=== PATIENT | female | born 1995 | race Caucasian/White ===

== ENCOUNTER 2017-08-25 13:51 | Inpatient (IN) | payer BC ==
[~2017-08-25] VITALS: Ht 165.1 cm; Wt 56.7 kg
[2017-08-25 15:23] LABS: BASOPHILS 0.4 % (0-2); EOSINOPHILS 1.1 % (0-7); HEMATOCRIT 38.2 % (36.0-48.0); IMMATURE GRANULOCYTES 0.2 % (0-5); LYMPHOCYTES 28.3 % (15-50); MCH 28.1 pg (26.0-34.0); MCV 82.5 fL (80.0-100.0); MEAN PLATELET VOLUME 10.8 fL (7.4-10.4); MONOCYTES 12.8 % (2-11); NEUTROPHILS 57.2 % (40-80); PLATELET COUNT 213 10x3/uL (130-400); RBC 4.63 10x6/uL (4.00-5.40); RDW 12.3 % (11.5-14.5); WBC 5.2 10x3/uL (4.8-10.8)
[2017-08-25 15:37] LABS: APPEARANCE HAZY (CLEAR); BILIRUBIN NEGATIVE (NEGATIVE); COLOR YELLOW (YELLOW); GLUCOSE 1000 mg/dL (NEGATIVE); KETONE NEGATIVE (NEGATIVE); NITRITE POSITIVE (NEGATIVE); PROTEIN NEGATIVE (NEGATIVE); SPECIFIC GRAVITY 1.015 (1.005-1.020); UROBILINOGEN NORMAL (NORMAL)
[2017-08-25 15:39] LABS: BACTERIA MANY /hpf (NONE SEEN); EPITHELIAL CELLS 0-5 /hpf (0-5); MUCUS <1+ /lpf (NONE SEEN); RED CELLS - URINE 0-5 /hpf (0-5); WHITE CELLS - URINE 25-50 /hpf (0-5)
[2017-08-25 15:41] LABS: ALBUMIN 3.4 g/dL (3.4-5.0); ALKALINE PHOSPHATASE 74 U/L (46-116); ALT (SGPT) 17 U/L (10-68); CALCIUM 9.4 mg/dL (8.5-10.1); CARBON DIOXIDE 29.2 mmol/L (21.0-32.0); CHLORIDE - SERUM 102 mmol/L (98-107); CREATININE - SERUM 0.7 mg/dL (0.6-1.3); GLUCOSE 121 mg/dL (74-106); POTASSIUM - SERUM 4.1 mmol/L (3.5-5.1); PROTEIN - SERUM 7.1 g/dL (6.4-8.2); SODIUM 139 mmol/L (136-145); eGFR NON AFRICAN AMERICAN > 90 mL/min (90-120)
[2017-08-25 15:47] LABS: CALC OSMOLALITY 276 mosm/kg (275-300); UREA NITROGEN 8 mg/dL (7-18)
[2017-08-25 16:44] LABS: HCG URINE NEGATIVE (NEGATIVE)
--- NOTE | 2017-08-25 21:15 | NUR ---
RECEIVED PT FROM ED VIA WC PER HOSPITAL STAFF, PT TO ROOM 1218, PT ORIENTED TO ROOM PER HOSPITAL STAFF, INFORMED PT THAT I WILL BE BACK SHORTLY TO DO ASSESSMENT, PT VERBALIZES UNDERSTANDING, DENIES NEEDS AT THIS TIME
--- NOTE | 2017-08-25 21:35 | NUR ---
PT TRANSFERRED FROM ROOM 1218 TO ROOM 1221 VIA AMB, GAIT STEADY, PT CHANGED INTO HOSPITAL GOWN, PT TO BED
[2017-08-25 21:40] VITALS: BP 121/74; BMI 20.8
--- NOTE | 2017-08-25 21:40 | NUR ---
ADMITTING ASSESSMENT AND HISTORY STARTED
[2017-08-25] MEDS ORDERED: VYVANSE40 MG PO (22:09)
[2017-08-25] MEDS ORDERED: ZOFRAN8 MG PO (22:12)
[2017-08-25] MEDS ORDERED: ZOMIG5 MG/SPRAY NS (22:13)
--- NOTE | 2017-08-25 22:16 | NUR ---
ADMITTING HISTORY AND ASSESSMENT COMPLETED, SALINE LOCK IN RIGHT WRIST CONVERTED TO IV, NS STARTED VIA PUMP INFUSING AT 150 ML/HR, FSBS CHECKED, WILL ADM INSULIN PER MD ORDERS
--- NOTE | 2017-08-25 22:30 | NUR ---
INSULIN VERIFIED PER THIS RN AND NGHIA PASTOR, RN, PT ADM INSULIN PER SELF, SNACK PROVIDED, PT ORIENTED TO ROOM, BED IN LOW POSITION, SIDE RAILS X 2, CALL LIGHT IN REACH
--- NOTE | 2017-08-25 22:50 | NUR ---
PT INST TO USE [place] HAT WHEN VOIDING TO STRAIN URINE FOR KIDNEY STONE AND DO A CLEAN CATCH FOR A URINE CULTURE, PT VERBALIZES UNDERSTANDING
--- NOTE | 2017-08-25 23:05 | NUR ---
PT OBTAINED URINE CULTURE VIA CLEAN CATH, URINE TO LAB
[2017-08-26 00:23] VITALS: BP 99/63
--- NOTE | 2017-08-26 00:23 | NUR ---
PT AWAKE, C/O AMOR AND ABD PAIN, ADM MORPHINE SIVP PER MD ORDERS, SEE EMAR, VS OBTAINED, PT DENIES FURTHER NEEDS AT THIS TIME
--- NOTE | 2017-08-26 02:23 | NUR ---
PT RESTING WITH EYES CLOSED, RESP QUIET, NO DISTRESS NOTED, LEFT UNDISTURBED AT THIS TIME
--- NOTE | 2017-08-26 03:42 | NUR ---
PT RESTING WITH EYES CLOSED, RESP QUIET, NO DISTRESS NOTED, LEFT UNDISTURBED AT THIS TIME
[2017-08-26 04:38] VITALS: BP 111/70
--- NOTE | 2017-08-26 04:40 | NUR ---
pt awake. v/s done. rates pain 4/10, but refuses pain meds at this time.
--- NOTE | 2017-08-26 04:50 | NUR ---
NEW BAG OF NS HUNG VIA PUMP INFUSING AT 150 ML/HR, PT C/O SLIGHT AMOR, OFFERED PT MORPHINE OR TORADOL, PT REFUSES, STATES "I'M OK RIGHT NOW", PT INST TO USE CALL LIGHT FOR ANY NEEDS, PT VERBALIZES UNDERSTANDING
--- NOTE | 2017-08-26 07:21 | NUR ---
SHIFT REPORT TO CARRIE LU RN
[2017-08-26 07:30] VITALS: BP 114/73
--- NOTE | 2017-08-26 07:50 | NUR ---
PT C/O NAUSEA. GIVEN ZOFRAN IV AND FLUSHED WITH NS.
--- NOTE | 2017-08-26 09:47 | NUR ---
PT IS LYING IN BED, RESTING. SHE OFFERS NO COMPLAINTS. HER NAUSEA IS BETTER AND SHE WAS ABLE TO TOLERATE SOME BREAKFAST. BED IS LOW. SIDE RAILS UP X 2 AND CALL LIGHT IN REACH.
[2017-08-26 10:13] VITALS: Ht 165.1 cm; Wt 56.7 kg
--- NOTE | 2017-08-26 14:00 | NUR ---
PT REQUESTED MED FOR NAUSEA AND FOR HER HEADACHE. SHE WAS GIVEN ZOFRAN AND MORPHINE.
--- NOTE | 2017-08-26 18:50 | NUR ---
RECEIVED SHIFT REPORT FROM CARRIE LU RN
[2017-08-26 19:25] VITALS: BP 113/69
--- NOTE | 2017-08-26 19:25 | NUR ---
ASSESSMENT PER FLOW SHEET, VS OBTAINED, IV IN RIGHT WRIST INTACT WITH NO REDNESS OR EDEMA INFUSING VIA PUMP NS AT 150 ML/HR, PT REPORTS FLATUS, NO BM AND VOIDING BY SELF WITH NO DIFFICUTLY, PT REPORTS 500 MLS WITH LAST VOID, PT RATES AMOR 3-01/19, INFORMED PT THAT I WILL SEE WHAT IS ORDERED FOR PAIN AT THIS TIME, PT VERBALIZES UNDERSTANDING, DENIES FURTHER NEEDS AT THIS TIME, BED IN LOW POSITION, SIDE RAILS X 2, CALL LIGHT IN REACH
--- NOTE | 2017-08-26 20:41 | NUR ---
FSBS 135, ADM 2100 MED AND EXCEDRIN FOR AMOR PER MD ORDERS, SEE EMAR, PT DENIES NEEDS AT THIS TIME
--- NOTE | 2017-08-26 21:30 | NUR ---
PT AWAKE, REPORTS PAIN 0/10, STATES "I DON'T KNOW IF IT WAS THE MAGNESIUM OR THE EXCEDRIN THAT TOOK THIS AMOR AWAY, BUT I FEEL SO MUCH BETTER", PT REPORTS VOIDING, EMPTIED 200 MLS OF CLEAR YELLOW URINE FROM [place] HAT, PT STATES "THAT IS THE BEST MY URINE HAS LOOKED SINCE I'VE BEEN HERE", SPOUSE IN ROOM, BEDDING AND A RECLINER PULL OUT BED PROVIDED, PT DENIES NEEDS AT THIS TIME
--- NOTE | 2017-08-26 22:35 | NUR ---
PT VISITING WITH SPOUSE, DENIES PAIN, 2%MILK AND TUNG CRACKERS SERVED, PT STATES "I'M GETTING MY APPETITE BACK", PT DENIES FURTHER NEEDS
[2017-08-27 00:25] VITALS: BP 115/73
--- NOTE | 2017-08-27 00:25 | NUR ---
PT AWAKE, SPOUSE AT BEDSIDE, VS OBTAINED, PT DENIES NEEDS OR PAIN AT THIS TIME
--- NOTE | 2017-08-27 02:10 | NUR ---
PT PLUG SHAPER HAND LIGHT, NEW BAG OF NS HUNG VIA PUMP PER MD ORDERS, PT REQUEST THAT MLS/HR BE DECREASED FROM 150 TO 100 ML/HR, ALSO, PT WANTS TO AMB IN LOPES, PT AMB TO NSY TO LOOK AT BABIES, GAIT STEADY, THIS RN AT SIDE, PT BACK TO ASSET PROTECTION GREETER, VISITS WITH OTHER NURSE, THEN PT BACK TO ROOM
--- NOTE | 2017-08-27 04:12 | NUR ---
PT RESTING WITH EYES CLOSED, RESP QUIET, NO DISTRESS NOTED, LEFT UNDISTURBED AT THIS TIME, SPOUSE ASLEEP IN RECLINER
[2017-08-27 05:45] LABS: BASOPHILS 0.5 % (0-2); EOSINOPHILS 3.9 % (0-7); HEMATOCRIT 31.1 % (36.0-48.0); HEMOGLOBIN 10.4 g/dL (12-16); IMMATURE GRANULOCYTES 0.2 % (0-5); LYMPHOCYTES 40.4 % (15-50); MCH 27.8 pg (26.0-34.0); MCHC 33.4 g/dL (31.0-37.0); MCV 83.2 fL (80.0-100.0); MEAN PLATELET VOLUME 11.1 fL (7.4-10.4); MONOCYTES 13.4 % (2-11); NEUTROPHILS 41.6 % (40-80); PLATELET COUNT 179 10x3/uL (130-400); RBC 3.74 10x6/uL (4.00-5.40); RDW 12.3 % (11.5-14.5); WBC 4.3 10x3/uL (4.8-10.8)
[2017-08-27 06:08] LABS: CALCIUM 8.3 mg/dL (8.5-10.1); CARBON DIOXIDE 27.1 mmol/L (21.0-32.0); CHLORIDE - SERUM 104 mmol/L (98-107); CREATININE - SERUM 0.6 mg/dL (0.6-1.3); MAGNESIUM - SERUM 1.6 mg/dL (1.8-2.4); POTASSIUM - SERUM 3.7 mmol/L (3.5-5.1); SODIUM 139 mmol/L (136-145); eGFR NON AFRICAN AMERICAN > 90 mL/min (90-120)
[2017-08-27 06:09] LABS: CALC OSMOLALITY 281 mosm/kg (275-300); GLUCOSE 195 mg/dL (74-106); UREA NITROGEN 11 mg/dL (7-18)
--- NOTE | 2017-08-27 06:20 | NUR ---
PT AWAKE, FSBS 160, WILL ADM INSULIN PER SLIDING SCALE
--- NOTE | 2017-08-27 06:27 | NUR ---
PT ADM INSULIN PER SELF IN LLQ, VERIFIED PER THIS NURSE AND FELICIANO IVY, RN, SEE EMAR
--- NOTE | 2017-08-27 06:50 | NUR ---
SHIFT REPORT TO CARRIE LU RN
[2017-08-27 07:30] VITALS: BP 120/74
--- NOTE | 2017-08-27 07:32 | NUR ---
PT RECEIVED LYING IN BED THIS AM, RESTING. HER IS AT BEDSIDE. SHE STATES THAT SHE IS FEELING BETTER THIS AM. HER PAIN IS ABOUT A 3. GEN- AWAKE AND ALERT. LUNGS- CLEAR. HEART- RRR. ABD- SOFT WITH GENERALIZED TENDERNESS. EXT- NO EDEMA NOTED. SCD'S WHILE IN BED. . BED IS LOW, SIDE RAILS UP X 2 AND CALL LIGHT IN REACH. AT BEDSIDE. IV INTACT R WRIST WITH NS AT 100CC/HR.
--- NOTE | 2017-08-27 07:47 | NUR ---
PT IS UP AMBULATING IN HALLWAY.
--- NOTE | 2017-08-27 10:00 | NUR ---
DR TOSCANO IS HERE TO SEE PT. NEW ORDERS NOTED.
--- NOTE | 2017-08-27 10:26 | NUR ---
PT IS ASLEEP. BED IS LOW, SIDE RAILS UP X 2 AND CALL LIGHT IN REACH.
[2017-08-27] MEDS ORDERED: LEVAQUIN500 MG PO (10:27)
--- NOTE | 2017-08-27 11:12 | NUR ---
IV WAS D'CD R WRIST. TIP INTACT. PRESSURE DRESSING APPLIED. PTS DISCHARGE INSTRUCTIONS DISCUSSED WITH PT. HANDOUTS GIVEN. SHE WAS INSTRUCTED TO SEE DR ORDOÑEZ HER PCP FOR RELEASE BACK TO WORK. PT TAKEN TO HER RIDE BY WHEELCHAIR.
== END 2017-08-27 11:16 | disposition home or self-care (01) | DRG 690 ==
LOC: D.ER 13:51 → D.WS 18:16
PROVIDERS: Family Medicine; Nurse Practitioner Family; ADMIT Emergency Medicine
DX: N30.00 Acute cystitis without hematuria (principal); N20.0 Calculus of kidney; G43.909 Migraine, unspecified, not intractable, without status migrainosus; E10.9 Type 1 diabetes mellitus without complications; Z79.4 Long term (current) use of insulin